=== PATIENT | female | born 1930 | race Caucasian/White ===

== ENCOUNTER 2017-10-31 12:20 | Outpatient (CLI) | payer OTHER, MEDICARE ==
[~2017-10-31 12:20] MED LIST: ASPI-1063 PO; CARV12.548 PO; CARV6.2554 PO; CHOL20009 PO; LINA5TAB2 PO; LISI10TA5 PO; LOVA20TA2 PO; OMEP20CA10 PO; PREMVAG VG; SOLI10TA5 PO; [UNRECOGNIZED DRUG - CODE] PO
== END 2017-10-31 20:09 | disposition home or self-care (01) ==
LOC: SUS 12:20
PROVIDERS: ATTEND Orthopaedic Surgery
DX: R60.0 Localized edema (principal)
CPT/HCPCS: 93970